=== PATIENT | female | born 1945 | race Caucasian/White ===

== ENCOUNTER 2023-04-24 06:56 | Day surgery (SDC) | payer MEDICARE, SELFPAY ==
[2023-04-24] VITALS (12 sets, daily range): BP systolic 139–162; BP diastolic 72–88; PULSE 81–88; RESP 12–18; TEMP 36.8–36.9; O2SAT 94–97; BMI 37.0
[2023-04-24] MEDS: BUPIVACAINE 0.5% 30 ML 5 ML INJECTION (07:50)
[2023-04-24] MEDS: lidocaine HCL 2 % MULTIDOSE 20 ML VIAL 5 ML INJECTION (07:50)
[2023-04-24] MEDS: lidocaine HCL 2 % MULTIDOSE 20 ML VIAL INJECTION (09:07)
[2023-04-24] MEDS: BUPIVACAINE 0.5% 30 ML INJECTION (09:07)
--- NOTE | 2023-04-24 09:29 | P.ORPRC_ITS ---
Procedure Note Date of procedure: 04/24/23 Procedure: Preop diagnosis: Right upper extremity carpal tunnel syndrome Postop diagnosis: Right upper extremity carpal tunnel syndrome Procedure: Right upper extremity carpal tunnel release Anesthesia: Local Surgeon: Colby Mitchell MD production administrative assistant: Marlo Rivera PA-C EBL: 0 mL Complications: None Specimens: None Drains: None Indications: The patient has a history of right upper extremity carpal tunnel syndrome symp toms. Despite appropriate nonoperative management consisting of nighttime bracing and occupational therapy they continue to have symptoms. Operative intervention was recommended. The risks, benefits alternatives and expected outcomes were discussed in detail. These included but were not limited to: Infection, bleeding, injury to blood vessel or nerve, venous thromboembolism. All questions were answered to their satisfaction. The patient was placed supine on the operating room table. Local anesthesia was established with 0.5% Marcaine without epinephrine and 2% lidocaine without epinephrine. The hand was prepped and draped in usual sterile fashion. The limb was elevated the forearm pneumatic tourniquet was inflated to 250 mm of mercury. A longitudinal incision was made centered over the radial border of the ring finger at the base of the palm. Subcutaneous dissection was sharply taken through the palmar fascia to the transverse carpal ligament. Distally, the ligament was divided in line with the incision. Proximal and distal dissection was carried with tenotomy and Metzenbaum scissors. 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 It was dissected off of fascia and ligament to allow exposure of those structures. They were then divided longitudinally to complete the carpal tunnel release. This results in a wide decompression of the carpal tunnel. The tourniquet was released, bleeding was controlled with direct pressure. The wound was closed with a 3-0 nylon. A bulky dry dressing was applied, sponge and needle counts were correct x 2. The patient tolerated the procedure well, there were no apparent complications. They were sent to same day surgery in satisfac tory condition. Plan: Use of the hand as tolerates. Discontinue the intraoperative dressing on postoperative day 3 and may get the wound wet as tolerates. Follow up in the office in 2 weeks for a wound check and suture removal.
[2023-04-24] MEDS: BACITRACIN OINTMENT BULK TUBE 1 APPLIC TOPICAL (09:35)
== END 2023-04-24 10:08 | disposition home or self-care (01) ==
PROVIDERS: PCP Student in an Organized Health Care Education/Training Program; Visit Provider Orthopaedic Surgery
PROC: (CPT 64721; principal; 2023-04-24 08:15)
DX: G56.01 Carpal tunnel syndrome, right upper limb (principal)
CPT/HCPCS: 64721; J0665

== ENCOUNTER 2023-05-13 20:27 | Outpatient (CLI) | payer MEDICARE, SELFPAY | END 2023-05-13 20:28 | disposition home or self-care (01) | LOC: SLEEP 20:28 | PROVIDERS: PCP Student in an Organized Health Care Education/Training Program; Visit Provider Internal Medicine | DX: G47.33 Obstructive sleep apnea (adult) (pediatric) (principal) | CPT/HCPCS: 95811 ==